=== PATIENT | female | born 1985 | race African-American/Black ===

== ENCOUNTER 2017-07-01 07:03 | Emergency (ER) | payer OTHER ==
[2017-07-01 07:39] LABS: BILIRUBIN NEGATIVE (NEGATIVE); BLOOD NEGATIVE Ery/uL (NEGATIVE); CLARITY CLEAR (CLEAR); COLOR YELLOW (YELLOW); GLUCOSE (U) NORMAL (NORMAL); KETONE (U) NEGATIVE (NEGATIVE); LEUKOCYTES NEGATIVE Leu/uL (NEGATIVE); NITRITE NEGATIVE (NEGATIVE); PROTEIN NEGATIVE (NEGATIVE); SPECIFIC GRAVITY >=1.030 (1.001-1.030); UROBILINOGEN 0.2 mg/dL (0.2-1.0)
[2017-07-01 07:50] LABS: BASOPHIL 0.1 % (0-2); EOSINOPHIL 1.6 % (0-5); HCT 36.7 % (37.0-47.0); HGB 11.7 g/dl (12.5-16.0); LYMPHOCYTE 20.3 % (15-48); MCH 26.6 pg (25.0-31.0); MCHC 31.9 g/dL (32.0-36.0); MCV 83.4 fL (78.0-100.0); MONOCYTE 5.6 % (0-12); MPV 10.7 fL (6.0-9.5); NEUTROPHIL 72.4 % (41-80); PLT 219 K/uL (150-400); RDW 13.2 % (11.5-14.0); WBC 10.3 K/uL (4.0-10.5)
[2017-07-01 08:03] LABS: CREATININE 0.7 mg/dL (0.5-1.0); POTASSIUM 4.5 mmol/L (3.5-5.1)
== END 2017-07-01 08:38 | disposition home or self-care (01) ==
LOC: FER 07:03
PROVIDERS: Emergency Medicine
DX: R10.32 Left lower quadrant pain (principal); F17.200 Nicotine dependence, unspecified, uncomplicated
CPT/HCPCS: 36415; 74000; 80048; 81003; 85025